=== PATIENT | female | born 1990 | race Caucasian/White ===

== ENCOUNTER 2023-01-04 07:49 | Emergency (ER) | payer MEDICAID ==
[~2023-01-04] VITALS: Ht 160 cm; Wt 77.0 kg
[2023-01-04 07:59] VITALS: BP 123/79; PULSE 68; RESP 16; TEMP 98.1; O2SAT 99
[2023-01-04 09:03] LABS: BASOPHILS % 0.5 % (0.0-2.0); EOSINOPHILS % 1.3 % (0.0-5.0); HEMOGLOBIN. 15.7 g/dL (12.0-16.0); LYMPHOCYTES % 24.1 % (20.0-50.0); MEAN CORPUSCULAR HEMOGLOBIN 29.6 pg (28.0-32.0); MEAN CORPUSCULAR HGB CONC 33.4 g/dL (31.0-37.0); MEAN CORPUSCULAR VOLUME 88.6 fL (81.0-99.0); MEAN PLATELET VOLUME 7.3 fl (7.4-10.4); MONOCYTES % 4.8 % (2.0-8.0); NEUTROPHILS % 69.3 % (40.0-76.0); PLATELET 418 x1000/uL (130-400); RED CELL DISTRIBUTION WIDTH 13.9 % (11.6-14.6); WHITE BLOOD COUNT 13.4 x1000/uL (4.5-11.0)
[2023-01-04 09:12] LABS: CHLORIDE 109 mEq/L (98-107); POTASSIUM 3.9 mEq/L (3.5-5.1); SODIUM 136 mEq/L (136-145)
[2023-01-04 09:21] LABS: ALANINE AMINOTRANSFERASE 13 IU/L (13-61); ASPARTATE AMINOTRANSFERASE 11 IU/L (15-37); BILIRUBIN TOTAL 0.5 mg/dL (0.1-1.0); CALCIUM 10.5 mg/dL (8.5-10.1); CARBON DIOXIDE 20 mEq/L (21-32); CREATININE 0.7 mg/dL (0.6-1.3); GLUCOSE 142 mg/dL (70-105); PROTEIN TOTAL 8.6 g/dL (6.0-8.3); UREA NITROGEN BLOOD 13 mg/dL (7-21)
[2023-01-04] MEDS ORDERED: CEPH500C2 MT (12:40)
== END 2023-01-04 13:58 | disposition home or self-care (01) ==
LOC: ER 07:49
DX: S99.921A Unspecified injury of right foot, initial encounter (principal); L03.115 Cellulitis of right lower limb; F20.9 Schizophrenia, unspecified; X58.XXXA Exposure to other specified factors, initial encounter; Y93.89 Activity, other specified; Y92.89 Other specified places as the place of occurrence of the external cause; Y99.8 Other external cause status
CPT/HCPCS: 36415; 80053; 85025; 93971; 99284

== ENCOUNTER 2023-01-21 21:46 | Emergency (ER) | payer MEDICAID ==
[~2023-01-21] VITALS: Ht 165.1 cm; Wt 114.0 kg
[~2023-01-21 21:46] MED LIST: CEPH500C2 MT
[2023-01-21 21:51] VITALS: BP 153/93; PULSE 114; RESP 20; TEMP 97.7; O2SAT 100
[2023-01-21] MEDS ORDERED: DIPHENHYDRAMINE 50MG/ML VIAL IM PRN (23:00)
[2023-01-21] MEDS ORDERED: LORAZEPAM 2MG/ML CPJ IM PRN (23:00)
[2023-01-21] MEDS ORDERED: HALOPERIDOL LACTATE 5MG/ML VIAL IM ONE (23:00)
[2023-01-22 00:31] LABS: BASOPHILS % 0.4 % (0.0-2.0); EOSINOPHILS % 0.2 % (0.0-5.0); HEMATOCRIT. 41.1 % (36.0-48.0); HEMOGLOBIN. 13.7 g/dL (12.0-16.0); LYMPHOCYTES % 20.2 % (20.0-50.0); MEAN CORPUSCULAR HEMOGLOBIN 29.4 pg (28.0-32.0); MEAN CORPUSCULAR HGB CONC 33.3 g/dL (31.0-37.0); MEAN CORPUSCULAR VOLUME 88.2 fL (81.0-99.0); MEAN PLATELET VOLUME 7.9 fl (7.4-10.4); MONOCYTES % 5.5 % (2.0-8.0); NEUTROPHILS % 73.7 % (40.0-76.0); PLATELET 424 x1000/uL (130-400); RED BLOOD CELL COUNT 4.66 mill/uL (4.2-5.4); RED CELL DISTRIBUTION WIDTH 13.7 % (11.6-14.6); WHITE BLOOD COUNT 11.7 x1000/uL (4.5-11.0)
[2023-01-22 00:39] LABS: CHLORIDE 112 mEq/L (98-107); INDEX HEMOLYSI 1 (1-3); INDEX ICTERIC 1 (1-4); INDEX LIPEMIC 1 (1-3); POTASSIUM 3.4 mEq/L (3.5-5.1); SODIUM 140 mEq/L (136-145)
[2023-01-22 00:50] LABS: ACETAMINOPHEN <2 ug/mL ug/mL (10-30); ALANINE AMINOTRANSFERASE 14 IU/L (13-61); ALBUMIN 3.6 g/dL (3.4-5.0); ASPARTATE AMINOTRANSFERASE 20 IU/L (15-37); BILIRUBIN TOTAL 0.2 mg/dL (0.1-1.0); CALCIUM 10.2 mg/dL (8.5-10.1); CARBON DIOXIDE 22 mEq/L (21-32); CREATININE 0.6 mg/dL (0.6-1.3); ETHANOL BLOOD < 10 mg/dL (<10); GLUCOSE 144 mg/dL (70-105); PROTEIN TOTAL 8.1 g/dL (6.0-8.3); UREA NITROGEN BLOOD 13 mg/dL (7-21)
[2023-01-22 00:52] LABS: *AMPHETAMINES SCREEN URINE NEGATIVE (NEGATIVE); *BARBITURATES SCREEN URINE NEGATIVE (NEGATIVE); *BENZODIAZEPINES SCREEN URINE NEGATIVE (NEGATIVE); *COCAINE SCREEN URINE NEGATIVE (NEGATIVE); ECSTASY MDMA SCREEN URINE NEGATIVE (NEGATIVE); METHADONE URINE SCREEN NEGATIVE (NEGATIVE); OPIATES URINE SCREEN NEGATIVE (NEGATIVE); PHENCYCLIDINE URINE SCREEN NEGATIVE (NEGATIVE)
[2023-01-22 00:54] LABS: CANNABINOID URINE SCREEN PRESUMTIVE POSITIVE (NEGATIVE)
[2023-01-22 00:55] LABS: HCG SCREEN NEGATIVE
[2023-01-22 00:58] LABS: CLARITY URINE CLEAR (CLEAR); COLOR URINE YELLOW (YELLOW); GLUCOSE URINE NEGATIVE (NEGATIVE); PH URINE 5.5 (4.5-8.0); PROTEIN URINE TRACE (NEGATIVE)
[2023-01-22 00:59] LABS: KETONES URINE NEGATIVE (NEGATIVE); LEUKOCYTE ESTERASE URINE NEGATIVE (NEGATIVE); NITRITE URINE NEGATIVE (NEGATIVE); OCCULT BLOOD URINE NEGATIVE (NEGATIVE); UROBILINOGEN URINE 0.2 E.U./dL (0.2-1.0)
[2023-01-22 02:07] LABS: RBC URINE 0-2 /hpf (0-2); WBC URINE 0-2 /hpf (0-2)
[2023-01-22 02:09] LABS: BACTERIA URINE NONE SEEN; SQUAMOUS EPITHELIAL CELL URINE NONE SEEN /lpf (RARE/1+)
== END 2023-01-22 07:00 | disposition home or self-care (01) ==
LOC: ER 21:46
DX: F16.10 Hallucinogen abuse, uncomplicated (principal); F20.9 Schizophrenia, unspecified; F15.10 Other stimulant abuse, uncomplicated
CPT/HCPCS: 80053; 80305; 81003; 80307; 80329; 80320; 84703; 85025; 36415; 96372; 99284; 93005; J1200; J1630; J2060; G0480